=== PATIENT | male | born 1935 | race Caucasian/White ===

== ENCOUNTER 2019-04-15 14:17 | Observation (INO) | payer OTHER ==
--- OUTSIDE RECORDS SUMMARY | 2019-04-15 14:19 | XMS REPORT ---
:1935 [facility] Address [address] [place] [address] [place] [id number] Care Team Providers Name Role Phone Unavailable Unavailable Unavailable Problems This patient has no known problems. Allergies, Adverse Reactions, Alerts This patient has no known allergies or adverse reactions. Medications This patient has no known medications.
--- NOTE | 2019-04-15 14:49 | EKG ---
Test Date: 2019-04-15 Test Time: 14:37:28 Parking Assistant: JASMYN MEASUREMENT RESULTS: Intervals: Rate: 63 LA: 224 QRSD: 180 QT: 448 QTc: 458 Kila: P: 50 LA: 224 QRS: -63 T: 65 INTERPRETIVE STATEMENTS: Sinus rhythm with 1st degree AV block Right bundle branch block Left anterior fascicular block Bifascicular block Minimal voltage criteria for LVH, may be normal variant Septal infarct, age undetermined Abnormal ECG No previous ECG available for comparison Electronically Signed On 04-15-19 14:48:55 CDT by Olegario Ortega
[2019-04-15 15:12] LABS: Absolute Lymphocytes (CBC) 1.3 K/uL (0.7-4.9); Basophils % 0.5 % (0-1.3); Hematocrit 43.5 % (39.6-49.0); Lymphocytes % 17.4 % (15.3-44.8); MPV 7.6 fL (7.6-11.3); RBC Red Blood Cell Count 5.02 M/uL (4.33-5.43)
--- NOTE | 2019-04-15 15:21 | RAD REPORT ---
EXAM DESCRIPTION: Susan Single View04/15/2019 2:50 pm CLINICAL HISTORY: Chest pain COMPARISON: None FINDINGS: Hyperaerated lungs. The lungs appear clear of acute infiltrate. The heart is mildly enlar ged. Postsurgical changes involve the chest. IMPRESSION: No acute abnormalities displayed
[2019-04-15 15:25] LABS: Protime INR 0.96
[2019-04-15 15:33] LABS: ALT/SGPT 25 U/L (12-78); AST/SGOT 17 U/L (15-37); Albumin 3.6 g/dL (3.4-5.0); Alkaline Phosphatase 92 U/L (45-117); BUN Blood Urea Nitrogen 28 mg/dL (7-18); Bicarbonate 28 mmol/L (21-32); Bilirubin Direct 0.1 mg/dL (0-0.2); Bilirubin Total 0.3 mg/dL (0.2-1.0); Glucose Level 98 mg/dL (74-106); Magnesium 2.6 mg/dL (1.8-2.4); NT PRO-BNP 207 pg/mL (<450); Potassium 4.3 mmol/L (3.5-5.1); Protein, Total 7.2 g/dL (6.4-8.2); Sodium Level 142 mmol/L (136-145); Troponin (Emerg Dept Use Only) < 0.02 ng/mL (0.0-0.045)
--- NOTE | 2019-04-15 15:59 | ER ---
Nurse's Notes [facility] Name: Chance Diaz Age: 83 yrs Sex: Male : 1935 Arrival Date: 04/15/2019 Time: 14:19 Bed 18 Private MD: Nagi Miller L; Javier Euceda R Diagnosis: Syncope and collapse Presentation: 04/15 14:21 Presenting complaint: Patient states: i know i was awake and felt that i passed out, i hj was on the floor when i woke up, nobody witnessed it; now i feel normal; pt spoke with wood gouger and was told to come here for eval and possible admit; denies pain; denies weakness, denies N/V;. Transition of care: patient was not received from another setting of care. Onset of symptoms was April 15, 2019. Risk Assessment: Do you want to hurt yourself or someone else? Patient reports no desire to harm self or others. Initial Sepsis Screen: Does the patient meet any 2 criteria? No. Patient's initial sepsis screen is negative. Does the patient have a suspected source of infection? No. Patient's initial sepsis screen is negative. Care prior to arrival: None. 14:21 Method Of Arrival: Ambulatory 14:21 Acuity: CARMEN 3 hj Triage Assessment: 14:30 General: Appears in no apparent distress. comfortable, Behavior is calm, cooperative, bp appropriate for age. Pain: Denies pain. EENT: No deficits noted. Neuro: Level of Consciousness is awake, alert, obeys commands, Oriented to person, place, time, situation, Appropriate for age. Cardiovascular: No deficits noted. Respiratory: No deficits noted. GI: No signs and/or symptoms were reported involving the gastrointestinal system. : No signs and/or symptoms were reported regarding the genitourinary system. Derm: No deficits noted. Musculoskeletal: No deficits noted. 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 - Social history:: Smoking status: Patient/guardian denies using tobacco. - Ebola Screening: : No symptoms or risks identified at this time. Screenin:31 Abuse screen: Denies threats or abuse. Denies injuries from another. Nutritional bp screening: No deficits noted. Tuberculosis screening: No symptoms or risk factors identified. Fall Risk None identified. Assessment: 14:31 General: SEE TRIAGE NOTE. bp 15:38 Reassessment: ALL CURRENT ORDERS COMPLETED, RESULTS PENDING. bp 16:36 Reassessment: ADMIT MD AT B/S. bp Vital Signs: 14:26 BP 131 / 76; Pulse 64; Resp 18; Temp 98.6(TE); Pulse Ox 99% on R/A; Weight 68.04 kg; hj Height 5 ft. 6 in. (167.64 cm); Pain 0/10; 15:38 BP 118 / 67; Pulse 65; Resp 25; Pulse Ox 98% ; bp 16:38 BP 143 / 95; Pulse 66; Resp 16; Pulse Ox 100% ; bp 17:00 BP 146 / 98; Pulse 82; Resp 16; Temp 98.6; Pulse Ox 100% ; bp 14:26 Body Mass Index 24.21 (68.04 kg, 167.64 cm) hj ED Course: 14:19 Patient arrived in ED. as 14:19 Javier Euceda MD is Private Physician. as 14:19 Nagi Miller MD is Private Physician. as 14:23 Triage completed. hj 14:24 Inserted saline lock: 20 gauge in right antecubital area, using aseptic technique. aj Blood collected. 14:26 Arm band placed on right wrist. hj 14:29 Shoaib Fry, CESAR is Primary Nurse. bp 14:31 Patient has correct armband on for positive identification. Bed in low position. Call bp light in reach. Side rails up X2. Adult w/ patient. 14:37 Willi Guerra MD is Attending Physician. kdr 14:50 X-ray completed. Portable x-ray completed in exam room. Patient tolerated procedure mh1 well. 14:51 XRAY Chest (1 view) In Process Unspecified. EDMS 15:15 EKG done, by cardiopulmonary technician. reviewed by Willi Guerra MD. sm3 15:56 Paulette Edwards MD is Hospitalizing Provider. kdr 16:16 CT Head Brain wo Cont In Process Unspecified. EDMS 17:00 No provider procedures requiring assistance completed. Patient admitted, IV remains in bp place. Administered Medications: No medications were administered Outcome: 15:58 Decision to Hospitalize by Provider. kdr 16:59 Admitted to Tele accompanied by tech, family with patient, via wheelchair, room 428, bp with chart, Report called to GABBI GUERRERO 16:59 Condition: stable 16:59 Instructed on the need for admit. 17:10 Patient left the ED. bp Signatures: Dispatcher [employer] EDSamaria Reese, RN RN Willi Christie MD MD [facility] Mary Jo [place] 1 Zahida Hernandez Henry RN RN Shoaib Fry RN RN Xiomy Bunn 3
--- NOTE | 2019-04-15 15:59 | EDPHYS ---
Physician Documentation [facility] Name: Chance Diaz Age: 83 yrs Sex: Male : 1935 Arrival Date: 04/15/2019 Time: 14:19 Bed 18 Private MD: Nagi Miller L; Javier Euceda R ED Physician Willi Guerra HPI: 04/15 15:58 This 83 yrs old Male presents to ER via Ambulatory with complaints of syncopy.kdr 15:58 The patient has experienced syncope, became unresponsive, collapsed. Onset: The kdr symptoms/episode began/occurred acutely, just prior to arrival, today. Duration: The patient has had multiple episodes, The patient thinks they were brief. They were unwitnessed. Context: the episode(s) was witnessed, by no one, occurred at home. Associated injury: The patient did not suffer any apparent associated injury. Associated signs and symptoms: The patient has no apparent associated signs or symptoms. Current symptoms: Currently, the patient is not experiencing any symptoms. The patient has experienced a previous episode. The patient has been recently seen by a physician: Sent from Dr. Miller office. 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 - Social history:: Smoking status: Patient/guardian denies using tobacco. - Ebola Screening: : No symptoms or risks identified at this time. ROS: 15:58 Constitutional: Negative for fever, chills, and weight loss, Eyes: Negative for injury, kdr pain, redness, and discharge, ENT: Negative for injury, pain, and discharge, Neck: Negative for injury, pain, and swelling, Cardiovascular: Negative for chest pain, palpitations, and edema, Respiratory: Negative for shortness of breath, cough, wheezing, and pleuritic chest pain, Abdomen/GI: Negative for abdominal pain, nausea, vomiting, diarrhea, and constipation, Back: Negative for injury and pain, : Negative for injury, bleeding, discharge, and swelling, MS/Extremity: Negative for injury and deformity, Skin: Negative for injury, rash, and discoloration, Psych: Negative for depression, anxiety, suicide ideation, homicidal ideation, and hallucinations, Allergy/Immunology: Negative for hives, rash, and allergies, Endocrine: Negative for neck swelling, polydipsia, polyuria, polyphagia, and marked weight changes, Hematologic/Lymphatic: Negative for swollen nodes, abnormal bleeding, and unusual bruising. 15:58 Neuro: Positive for loss of consciousness, syncope, Negative for altered mental status, gait disturbance, headache, hearing loss, seizure activity, speech changes, tinnitus, tremor, visual changes, weakness. Exam: 15:58 Constitutional: This is a well developed, well nourished patient who is awake, alert, kdr and in no acute distress. Head/Face: Normocephalic, atraumatic. Eyes: Pupils equal round and reactive to light, extra-ocular motions intact. Lids and lashes normal. Conjunctiva and sclera are non-icteric and not injected. Cornea within normal limits. Periorbital areas with no swelling, redness, or edema. Neck: Trachea midline, no thyromegaly or masses palpated, and no cervical lymphadenopathy. Supple, full range of motion without nuchal rigidity, or vertebral point tenderness. No Meningismus. Chest/axilla: Normal chest wall appearance and motion. Nontender with no deformity. No lesions are appreciated. Cardiovascular: Regular rate and rhythm with a normal S1 and S2. No gallops, murmurs, or rubs. Normal PMI, no JVD. No pulse deficits. Respiratory: Lungs have equal breath sounds bilaterally, clear to auscultation and percussion. No rales, rhonchi or wheezes noted. No increased work of breathing, no retractions or nasal flaring. Abdomen/GI: Soft, non-tender, with normal bowel sounds. No distension or tympany. No guarding or rebound. No evidence of tenderness throughout. Back: No spinal tenderness. No costovertebral tenderness. Full range of motion. Skin: Warm, dry with normal turgor. Normal color with no rashes, no lesions, and no evidence of cellulitis. MS/ Extremity: Pulses equal, no cyanosis. Neurovascular intact. Full, normal range of motion. Neuro: Awake and alert, GCS 15, oriented to person, place, time, and situation. Cranial nerves II-XII grossly intact. Motor strength 5/5 in all extremities. Sensory grossly intact. Cerebellar exam normal. Normal gait. Psych: Awake, alert, with orientation to person, place and time. Behavior, mood, and affect are within normal limits. Vital Signs: 14:26 BP 131 / 76; Pulse 64; Resp 18; Temp 98.6(TE); Pulse Ox 99% on R/A; Weight 68.04 kg; hj Height 5 ft. 6 in. (167.64 cm); Pain 0/10; 15:38 BP 118 / 67; Pulse 65; Resp 25; Pulse Ox 98% ; bp 16:38 BP 143 / 95; Pulse 66; Resp 16; Pulse Ox 100% ; bp 17:00 BP 146 / 98; Pulse 82; Resp 16; Temp 98.6; Pulse Ox 100% ; bp 14:26 Body Mass Index 24.21 (68.04 kg, 167.64 cm) hj MDM: 15:58 Patient medically screened. [facility] 16:02 Data reviewed: vital signs, nurses notes, lab test result(s), radiologic studies. kdr Counseling: I had a detailed discussion with the patient and/or guardian regarding: the historical points, exam findings, and any diagnostic results supporting the discharge/admit diagnosis, lab results, radiology results, the need for further work-up and treatment in the hospital. 04/15 14:38 Order name: Basic Metabolic Panel [facility] 04/15 14:38 Order name: CBC with Diff; Complete Time: 15:54 [facility] 04/15 14:38 Order name: LFT's; Complete Time: 15:54 [facility] 04/15 14:38 Order name: Magnesium; Complete Time: 15:54 [facility] 04/15 14:38 Order name: NT PRO-BNP; Complete Time: 15:54 [facility] 04/15 14:38 Order name: PT-INR; Complete Time: 15:54 [facility] 04/15 14:30 Order name: EKG; Complete Time: 14:32 04/15 14:38 Order name: Troponin (emerg Dept Use Only); Complete Time: 15:54 [facility] 04/15 14:38 Order name: XRAY Chest (1 view); Complete Time: 15:54 [facility] 04/15 14:38 Order name: Cardiac monitoring; Complete Time: 14:55 [facility] 04/15 14:38 Order name: EKG - Nurse/Tech; Complete Time: 14:55 [facility] 04/15 14:38 Order name: IV Saline Lock; Complete Time: 15:03 [facility] 04/15 14:40 Order name: Basic Metabolic Panel; Complete Time: 15:54 [facility] 04/15 15:53 Order name: CT Head Brain wo Cont [facility] 04/15 14:38 Order name: Labs collected and sent; Complete Time: 15:04 [facility] 04/15 14:38 Order name: O2 Per Protocol; Complete Time: 14:55 [facility] 04/15 14:38 Order name: O2 Sat Monitoring; Complete Time: 14:55 [facility] Administered Medications: No medications were administered Disposition: 04/15/19 15:58 Hospitalization ordered by Paulette Edwards for Observation. Preliminary diagnosis is Syncope and collapse. - Bed requested for Telemetry/MedSurg (observation). - Status is Observation. bp - Condition is Fair. - Problem is new. - Symptoms have improved. UTI on Admission? No Signatures: Dispatcher [employer] EDMS Willi Guerra MD MD kdr Clayton Eid RN RN hj Peltier, Brian, RN RN Dania Hayes Corrections: (The following items were deleted from the chart) 16:40 15:58 Hospitalization Ordered by Paulette Edwards MD for Observation. Preliminary diagnosis eb is Syncope and collapse. Bed requested for Telemetry/MedSurg (observation). Status is Observation. Condition is Fair. Problem is new. Symptoms have improved. UTI on Admission? No. kdr 17:10 16:40 04/15/2019 15:58 Hospitalization Ordered by Paulette Edwards MD for Observation. bp Preliminary diagnosis is Syncope and collapse. Bed requested for Telemetry/MedSurg (observation). Status is Observation. Condition is Fair. Problem is new. Symptoms have improved. UTI on Admission? No. eb
--- NOTE | 2019-04-15 16:40 | RAD REPORT ---
EXAM DESCRIPTION: CT - Head Brain Wo Cont - 04/15/2019 4:14 pm CLINICAL HISTORY: Syncope COMPARISON: None. TECHNIQUE: Computed axial tomography of the head was obtained. IV contrast was not requested. All CT scans are performed using dose optimization technique as appropriate and may include automated exposure control or mA/KV adjustment according to patient size. FINDINGS: An intracranial bleed is not seen . The ventricles are normal in caliber. No extra-axial fluid collection is noted. Fluid within the sinuses/ mastoids is not seen. IMPRESSION: No acute intracranial abnormality is seen. If patient's symptoms persist MRI of the bra in would be recommended.
[2019-04-15 17:28] VITALS: BMI 24.5
[2019-04-15] MEDS ORDERED: ACETAMINOPHEN 500 MG TAB PO PRN (18:09)
[2019-04-15] MEDS ORDERED: ONDANSETRON 4 MG/2 ML VIAL IV PRN (18:09)
[2019-04-15] MEDS ORDERED: NA CHLORIDE 0.9% 1,000 ML IV SCH (18:09)
--- NOTE | 2019-04-15 18:33 | RAD REPORT ---
EXAM DESCRIPTION: RAD - Shoulder Right 2 View - 04/15/2019 6:08 pm CLINICAL HISTORY: Right shoulder pain FINDINGS: No fracture or dislocation is seen. Moderate osteoarthritis involves the AC joint. The hum eral head is high riding which may indicate a chronic rotator cuff tear
[2019-04-15 20:10] LABS: Urine Appearance CLEAR; Urine Bilirubin NEGATIVE (NEG); Urine Blood NEGATIVE (NEG); Urine Color YELLOW; Urine Glucose NEGATIVE (NEG); Urine Protein NEGATIVE (NEG); Urine Specific Gravity 1.015 (1.005-1.030); Urine Urobilinogen 0.2 mg/dL (0.2-1.0); Urine pH 6.5 (5.0-7.0)
[2019-04-15 20:12] LABS: Urine Microscopic Reflex NO UMIC
[2019-04-15] MEDS: TRAZODONE 50 MG TABLET PO SCH ×2 (21:00→21:43)
[2019-04-15] MEDS: ATORVASTATIN 10 MG TAB PO SCH ×2 (21:00→21:43)
[2019-04-15 21:24] VITALS: O2SAT 96
--- NOTE | 2019-04-15 22:42 | HP ---
Date of Admission: 04/15/2019 Primary Care Physician: Regan Euceda MD Chief Complaint: Syncopal episode. Code Status: Full. History Of Present Illness: Patient is an 83-year-old male with past medical history of coronary art gale disease status post CABG, hyperlipidemia, insomnia, chronic back pain, who comes in with syncopal episode x2. Patient was in his usual state of health until day of admission when the patient was at tempting to sit down and the next thing he remembers is being on the floor. Denies hitting his head. States he was only out for a few seconds. Later on subsequent to this episode, patient was in the kitchen and had another episode of syncope. It was not witnessed, however. There was no bowel or bl adder incontinence. Doubt any type of seizure activity. Patient states that he has been hydrating w ell and has not skipped any meals. Denies any chest pain, nausea, vomiting, diaphoresis. Did report some shortness of breath, however, that is his usual since the coronary artery bypass. Patient did have similar episode last year and has recently had a carotid artery ultrasound [address] Alaina sifuentes's office. No recent changes to his medications. Symptoms are constant, moderate, progressivel y worsening. Therefore, he went to see his [employer] consultant, who referred him to the emergency [facility]. His workup revealed a creatinine level of 1.55, unknown baseline. White blood cell count was nor mal. EKG did show some bundle branch block and bifascicular block. His head CT and chest x-ray were unremarkable. The patient was then referred for admission. When seen in the ER, he was awake, aler t, and oriented x3, not in any acute distress. Past Medical History: Coronary artery disease status post CABG, hyperlipidemia, insomnia. Past Surgical History: Coronary artery bypass graft, back surgery, hernia repair, cataract surgery, and prostate surgery. Allergies: TO SOME BONE MEDICATION, UNCLEAR NAME. Social History: The patient denies any tobacco use or daily alcohol use. Drinks a beer once in a wh ile. The patient is , lives at home, independent in his activities of daily living, has good social support. Family History: Patient states father of cancer. Mother had an Alzheimer disease. Review of Systems: Ten-point system reviewed, negative except as per HPI. Physical Examination: Vital Signs: Blood pressure 131/76, pulse 64, respirations 18, temperature 98.6, O2 of 99% on room a ir. General: Awake, alert, and oriented x3. Elderly male, in some mild distress. HEENT: Normocephalic, atraumatic. PERRLA. EOMI. Dry mucous membranes. Oropharynx is clear. Norm al dentition. Conjunctivae anicteric. Neck: Supple. No JVD. Trachea midline. CV: S1, S2. Regular rate and rhythm. Peripheral pulses present. Respiratory: Moving air well bilaterally. No wheezing or stridor. No use of accessory muscles. Gastrointestinal: Abdomen is soft, nontender, nondistended. Positive bowel sounds. No guarding or rigidity. Extremities: No clubbing, cyanosis, or edema. No calf tenderness. Neuro: Cranial nerves 2 through 12 intact grossly. No focal neurological deficits. Speech is antwon l. Skin: Normal skin turgor. No rashes. Patient does have an abrasion on the right shoulder. Psych: Mood is okay. Affect is full. Insight and judgment are good. Laboratory Data: Sodium 142, potassium 4.3, chloride 109, CO2 of 28, BUN 28, creatinine 1.55, glucos e 98, calcium 8.5, magnesium 2.6. INR 0.96. WBC 7.2, H and H 14.5 and 43.5, platelets 181. EKG paulina ws sinus rhythm with first-degree AV block, right bundle branch block, left anterior fascicular block , rate of 63. Chest x-ray, no acute abnormality seen. Head CT scan, no acute intracranial abnormali ty. Assessment And Plan: An 83-year-old male with: 1.Syncopal episode, likely due to arrhythmia. Patient did have some beats of nonsustained ventricul ar tachycardia in the ER. We will continue to monitor on telemetry. We will obtain results of carot id ultrasound done recently. Patient may benefit from echocardiogram. Consult Cardiology. We will keep on bedrest, have PT work with him and place him on fall precautions. 2.Coronary artery disease status post coronary artery bypass graft. [place] artery and [place] heart. We will resume home medications. Patient is on baby aspirin and statin. 3.Mixed hyperlipidemia. We will continue statin. 4.Insomnia. Patient takes trazodone at night. 5.Chronic back pain, midline, with sciatica, stable. 6.Deep venous thrombosis prophylaxis with Lovenox. Plan: Admit the patient to Med-Surg, place as observation. CAPO Voice ID: [id number]
[2019-04-16 06:16] LABS: Absolute Lymphocytes (CBC) 1.1 K/uL (0.7-4.9); Basophils % 0.7 % (0-1.3); Hematocrit 41.7 % (39.6-49.0); Lymphocytes % 20.2 % (15.3-44.8); MPV 7.6 fL (7.6-11.3); RBC Red Blood Cell Count 4.83 M/uL (4.33-5.43)
[2019-04-16 06:32] LABS: Albumin 3.2 g/dL (3.4-5.0); Bilirubin Total 0.5 mg/dL (0.2-1.0); Potassium 4.3 mmol/L (3.5-5.1); Protein, Total 6.4 g/dL (6.4-8.2)
[2019-04-16 08:41] VITALS: BP 142/81; TEMP 97.2
[2019-04-16] MEDS ORDERED: HOME MED 1 EA UNK (Pravastatin Sodium [Pravachol] 80 MG) PO SCH (09:00)
--- NOTE | 2019-04-16 11:03 | CON ---
Date of Consultation: 04/16/2019 Reason For Consultation: Syncope. History Of Present Illness: Mr. Diaz is an 83-year-old white male. He is a patient of Dr. Nagi Miller. He was sent from his office yesterday to the emergency room for being syncopal multiple time s over the last couple of days. He has a history of coronary artery disease, status post CABG. He h as inoperable coronary artery disease. His bypass surgery was in 2004. His last echocardiogram in was within normal limit. He had a carotid Doppler about a year ago that was positive for minimal plaquing only. No significant stenosis. Has had an event monitor in the past showing bradycardia. He denied any chest pain, nausea, vomiting, diaphoresis, PND, orthopnea, pedal edema, or palpitation . Denied any fevers or chills. Past Medical History: As stated earlier. Allergies: BONE MEDICATIONS, NONSPECIFIC. Home Medications: Trazodone and Pravachol. Review of Systems: Negative. Social History: Negative. Family History: Noncontributory. Physical Examination: Vital Signs: Stable, afebrile. HEENT: Negative. Neck: Supple. No bruit. Chest: Clear. Cardiac: Revealed a regular rhythm and rate. No murmurs, gallops, or rubs. Abdomen: Benign. Extremities: Revealed no clubbing, cyanosis, or edema. Diagnostic Data: His creatinine was 1.55. CT of his head was negative. Chest x-ray was negative. EKG showed bifascicular block. Impression And Plan: Syncope with previous negative carotid Dopplers. Arrhythmia needs to be ruled out. Overnight, he had not had any significant arrhythmia. He is bradycardic but not significant. His EKG shows bifascicular block. He has some elevated creatinine consistent with renal insufficienc y, stage 3. He has dyslipidemia. Had CABG in 2004 with known inoperable coronary artery disease by catheterization approximately 3 years ago. I will continue monitoring for now. I will discuss the c ase further with Dr. Edwards. Dr. Miller will see him later on today and decide on further workup. No change in medical therapy for now. NB/MODL Voice ID: [id number] Report ID: [id number]
--- NOTE | 2019-04-16 13:31 | ECHO ---
HEIGHT: 5 ft 6 in WEIGHT: 151 lb 9.6 oz DATE OF STUDY: 04/16/[address]: Nagi Miller MD 2-DIMENSIONAL: YES M.MODE: YES DOPPLER: YES COLOR FLOW: YES TDS: PORTABLE: DEFINITY: BUBBLE STUDY: DIAGNOSIS: SYNCOPE, CORNARY ARTERY DISEASE, CORNARY ARTERY BYPASS GRAFT CARDIAC HISTORY: CATHERIZATION: YES SURGERY: YES PROSTHETIC VALVE: NO PACEMAKER: NO MEASUREMENTS (cm) DIASTOLIC (NORMALS) SYSTOLIC (NORMALS) IVSd 1.1 (0.6-1.2) LA Diam 3.0 (1.9-4.0) LVEF 76% LVIDd 3.8 (3.5-5.7) LVIDs 2.1 (2.0-3.5) %FS 44% LVPWd 1.1 (0.6-1.2) Ao Diam 3.1 (2.0-3.7) 2 DIMENSIONAL ASSESSMENT: RIGHT ATRIUM: NORMAL LEFT ATRIUM: NORMAL RIGHT VENTRICLE: NORMAL LEFT VENTRICLE: NORMAL TRICUSPID VALVE: NORMAL MITRAL VALVE: NORMAL PULMONIC VALVE: NORMAL AORTIC VALVE: NORMAL PERICARDIAL EFFUSION: NONE AORTIC ROOT: NORMAL LEFT VENTRICULAR WALL MOTION: NORMAL DOPPLER/COLOR FLOW: NORMAL COMMENTS: NORMAL 2-DIMENSIONAL ECHOCARDIOGRAM WITH DOPPLER. TECHNOLOGIST: EVARISTO GLYNN
--- NOTE | 2019-04-16 14:39 | PN ---
Date of Progress Note: 04/16/2019 Subjective: Patient seen and examined. Chart reviewed and case discussed with RN. No family at the bedside. Patient denies any further syncopal episodes or significant arrhythmias per nursing staff. Medications: List reviewed. Physical Examination: Vital Signs: Temperature 97.2, heart rate 56, blood pressure 142/81, respirations 20, O2 of 97% on r oom air. General: Awake, alert, and oriented x3, not in any acute distress CV: S1, S2. Sinus bradycardia. Patient does have a 3/6 systolic murmur. Respiratory: Moving air well bilaterally. No wheezing or stridor. Gastrointestinal: Abdomen is soft, nontender, nondistended. Positive bowel sounds. Extremities: No clubbing, cyanosis, or edema. Neuro: Cranial nerves 2 through 12 intact grossly. No focal neurological deficit. Speech is normal . Laboratory Data: Sodium 145, potassium 4.3, chloride 112, CO2 of 27, BUN 25, creatinine 1.48, glucos e 87, calcium 8.3. WBC 5.3, H and H 14.2 41.7, platelets 165. Shoulder x-ray shows no fracture or d islocation. Moderate osteoarthritis involves the AC joint. Humeral head is high-riding, which may i ndicate a chronic rotator cuff tear. Assessment And Plan: An 83-year-old male with: 1.Acute syncopal episode, likely due to arrhythmia. Patient has been bradycardic. Did have some no nsustained ventricular tachycardia in the ER yesterday. Appreciate Cardiology input. We will contin ue to monitor. 2.Coronary artery disease status post coronary artery bypass graft kaw artery and kaw heart. Continue on aspirin and statin stable. 3.Hyperlipidemia. Continue statin. 4.Insomnia. Continue trazodone at night. 5.Chronic back pain, midline with sciatica stable. 6.Sinus bradycardia, symptomatic. 7.Chronic kidney disease stage 3. We will continue to monitor creatinine. Discontinue IV fluids. 8.Deep venous thrombosis prophylaxis with Lovenox. 9.Chronic rotator cuff tear. Patient had an abrasion on the shoulder from fall. There was no fract ure seen on the x-ray. Plan: Patient has already had a previous workup including negative carotid Dopplers. Patient may ne ed a pacemaker due to symptomatic bradycardia. We will discuss further with Cardiology, may need to be transferred. Discharge, if continues to improve. /OSCAR Voice ID: [id number] Report ID: [id number]
== END 2019-04-16 16:42 | disposition home or self-care (01) ==
LOC: ER 14:17 → ERHOLD 16:13 → 4TH 17:00
PROVIDERS: ADMIT Family Medicine; ATTEND Family Medicine
DX: R55 Syncope and collapse (principal); I25.10 Atherosclerotic heart disease of native coronary artery without angina pectoris; I45.2 Bifascicular block; N18.3 Chronic kidney disease, stage 3 (moderate); E78.2 Mixed hyperlipidemia; G89.29 Other chronic pain; M54.9 Dorsalgia, unspecified; G47.00 Insomnia, unspecified; M54.30 Sciatica, unspecified side; M75.101 Unspecified rotator cuff tear or rupture of right shoulder, not specified as traumatic; S40.211A Abrasion of right shoulder, initial encounter; W19.XXXA Unspecified fall, initial encounter; R00.1 Bradycardia, unspecified; R94.31 Abnormal electrocardiogram [ECG] [EKG]; M19.011 Primary osteoarthritis, right shoulder; Z95.1 Presence of aortocoronary bypass graft; Z79.899 Other long term (current) drug therapy
CPT/HCPCS: 93005; 93306; 85025 ×2; 80048; 36415; 83735; 85610; 80076; 81003; 84484; 80053; 83880; 70450; 71045; 73030; 97116; 97161; 94760 ×2; 99285; J7030 ×2; G0378 ×2